=== PATIENT | female | born 1975 | race African-American/Black ===

== ENCOUNTER 2020-11-17 03:52 | Emergency (ER) | payer MEDICAID ==
[~2020-11-17] VITALS: Ht 165.1 cm; Wt 64.0 kg
[2020-11-17] MEDS ORDERED: KETOROLAC 60MG/2ML VIAL IM STA (04:18)
[2020-11-17] MEDS ORDERED: ACETAMINOPHEN WITH CODEINE 300/30MG TABLET PO STA (04:18)
[2020-11-17] MEDS ORDERED: T3 PO (05:04)
[2020-11-17] MEDS ORDERED: NAPR-681 PO (05:04)
[2020-11-17 05:08] LABS: CLARITY URINE CLEAR (CLEAR); COLOR URINE YELLOW (YELLOW); KETONES URINE NEGATIVE (NEGATIVE); LEUKOCYTE ESTERASE URINE NEGATIVE (NEGATIVE); NITRITE URINE NEGATIVE (NEGATIVE); OCCULT BLOOD URINE NEGATIVE (NEGATIVE); PH URINE 6.5 (4.5-8.0); PROTEIN URINE NEGATIVE (NEGATIVE); SPECIFIC GRAVITY URINE 1.006 (1.005-1.030); UROBILINOGEN URINE 0.2 E.U./dL (0.2-1.0)
[2020-11-17 05:27] VITALS: BP 145/78
== END 2020-11-17 05:30 | disposition home or self-care (01) ==
LOC: ER 03:52
DX: M54.42 Lumbago with sciatica, left side (principal); I10 Essential (primary) hypertension; E11.9 Type 2 diabetes mellitus without complications
CPT/HCPCS: 81003; 81025; 96372; 99283; J1885

== ENCOUNTER 2024-11-16 17:05 | Emergency (ER) | payer MEDICAID, OTHER ==
[~2024-11-16] VITALS: Ht 172.7 cm; Wt 74.8 kg
[~2024-11-16 17:05] MED LIST: NAPR-681 PO; T3 PO
[2024-11-16 18:02] VITALS: O2SAT 99
[2024-11-16] MEDS: VISCOUS LIDOCAINE 2% 15 ML UDC MM STA (20:34)
[2024-11-16] MEDS ORDERED: CLOT10TR2 MT (21:09)
[2024-11-16 21:25] VITALS: BP 150/80; PULSE 91; RESP 18; TEMP 36.6; O2SAT 100
== END 2024-11-16 21:27 | disposition home or self-care (01) ==
LOC: ER 17:05
DX: B37.0 Candidal stomatitis (principal); I10 Essential (primary) hypertension; E11.9 Type 2 diabetes mellitus without complications; Z79.899 Other long term (current) drug therapy
CPT/HCPCS: 87070; 87430; 99283

== ENCOUNTER 2024-11-28 20:00 | Emergency (ER) | payer OTHER ==
[~2024-11-28] VITALS: Ht 165.1 cm; Wt 72.0 kg
[~2024-11-28 20:00] MED LIST changes: +CLOT10TR2 MT
[2024-11-28 20:21] VITALS: O2SAT 97
[2024-11-28 20:42] VITALS: BP 174/100; PULSE 79; RESP 18; TEMP 36.9; O2SAT 96
== END 2024-11-29 00:22 | disposition left against medical advice (07) ==
LOC: ER 20:00
DX: R53.1 Weakness (principal); E11.9 Type 2 diabetes mellitus without complications; I10 Essential (primary) hypertension; Z79.899 Other long term (current) drug therapy
CPT/HCPCS: 71045; 99283